=== PATIENT | female | born 1960 | race Caucasian/White ===

== ENCOUNTER 2017-04-29 09:35 | Emergency (ER) | payer OTHER ==
--- NOTE | 2017-04-29 09:36 | PDOC ---
History of Present Illness - General Chief Complaint: Bone Injury Stated Complaint: LEFT ANKLE INJURY - History of Present Illness Initial Comments: 04/29/17 09:37 Chief complaint: Pain lateral left ankle History of present illness: Patient tripped walking down hill yesterday, inverted left ankle. Ambulating adequately at the time, but today pain is more severe with weightbearing and walking. Review of systems: Denies any distal numbness tingling pain or weakness of the foot or toes. Denies any other injuries including pain or injuries to the head neck chest abdomen spine and pelvis or other extremities. There is no calf, knee , thigh, or hip pain Past medical history, social history, family history reviewed and noncontributory to this injury Physical exam: Alert oriented well-developed well-nourished no acute distress cheerful and cooperative. Ambulating adequately, with a slight limp Afebrile, vital signs normal Left ankle: There is no deformity. Minimal swelling over the anterior lateral ligaments. No point tenderness malleoli or fifth metatarsal. No instability. Pulses full. No sensory or motor deficits the foot or toes Impression: Sprain, rule out fracture Plan: X-ray and further orthopedic management depending on results Past History - Past Medical History Allergies/Adverse Reactions: Allergies Allergy/AdvReac Type Severity Reaction Status Date / Time No Known Allergies Allergy Unverified 04/29/17 09:36 Home Medications: Ambulatory Orders NK [No Known Home Medication] 04/29/17 Medical Decision Making - Medical Decision Making 04/29/17 10:10 X-ray negative Grant wrap applied. No distal numbness tingling pain or weakness after application. Patient more comfortable. Ambulating adequately. Rest ice and elevation and follow-up with orthopedist if no improvement diagnosis is ankle sprain. *DC/Admit/Observation/Transfer Diagnosis at time of Disposition: Ankle sprain Qualifiers: Encounter type: initial encounter Involved ligament of ankle: tibiofibular ligament Laterality: left Qualified Code(s): S93.432A - Sprain of tibiofibular ligament of left ankle, initial encounter - Discharge Dispostion Disposition: HOME Condition at time of disposition: Improved Admit: No - Referrals Referrals: Kendall Neville MD [Staff Physician] - 1 week - Patient Instructions Printed Discharge Instructions: DI for Ankle Sprain, How to Apply an Grant Wrap
[2017-04-29 09:51] VITALS: BP 152/86; PULSE 88; TEMP 97.9; BMI 28.1
== END 2017-04-29 10:20 | disposition home or self-care (01) ==
LOC: FER 09:35
DX: S93.432A Sprain of tibiofibular ligament of left ankle, initial encounter (principal); X58.XXXA Exposure to other specified factors, initial encounter; Y93.89 Activity, other specified; Y92.89 Other specified places as the place of occurrence of the external cause
CPT/HCPCS: 73610-TC-LT; 99282-25